=== PATIENT | female | born 1955 | race Caucasian/White ===

== ENCOUNTER 2020-04-30 14:36 | Emergency (ER) | payer MEDICARE, OTHER ==
[~2020-04-30] VITALS: Ht 162.6 cm; Wt 88.5 kg
[~2020-04-30 14:36] MED LIST: CETI10 PO; CODACE30 PO; DOXY100 PO; ERGO50000 PO; HYDACE5 PO; IBUP400 PO; LEVSOD50 PO; MECL25 PO; METPRE4DP PO; METR500 PO; NAPR500 PO; NAPR550 PO; PENVK500 PO; PRED20 PO; TRAM50 PO; VALERIAN ROOT PO
== END 2020-04-30 15:55 | disposition home or self-care (01) ==
LOC: ER 14:36
DX: M25.462 Effusion, left knee (principal); Z91.012 Allergy to eggs; Z79.899 Other long term (current) drug therapy
CPT/HCPCS: 99282

== ENCOUNTER 2022-01-21 11:56 | Emergency (ER) | payer MEDICARE, OTHER ==
[~2022-01-21] VITALS: Ht 162.6 cm; Wt 77.1 kg
[2022-01-21 13:23] LABS: BASOPHILS ABSOLUTE AUTO 0.05 K/mm3 (0.00-0.23); BASOPHILS PERCENT AUTO 1 % (0-2); EOSINOPHILS ABSOLUTE AUTO 0.11 K/mm3 (0.00-0.68); EOSINOPHILS PERCENT AUTO 2 % (0-6); Hematocrit 42.8 % (33.0-51.0); Hemoglobin 14.4 g/dL (11.5-16.0); IMMATURE GRAN ABSOLUTE AUTO 0.01 K/mm3 (0.00-0.10); IMMATURE GRAN PERCENT AUTO 0 % (0-1); LYMPHOCYTES ABSOLUTE AUTO 2.23 K/mm3 (0.84-5.20); LYMPHOCYTES PERCENT AUTO 41 % (21-46); MONOCYTES ABSOLUTE AUTO 0.53 K/mm3 (0.16-1.47); MONOCYTES PERCENT AUTO 10 % (4-13); Mean Corpuscular HGB 30.1 pg (26.0-34.0); Mean Corpuscular HGB Conc 33.6 g/dL (31.5-36.5); Mean Corpuscular Volume 89 fL (80-100); Mean Platelet Volume 10.6 fL (9.1-12.4); NEUTROPHILS ABSOLUTE AUTO 2.57 K/mm3 (1.96-9.15); NEUTROPHILS PERCENT AUTO 47 % (41-73); Platelet Count 224 K/mm3 (150-400); RDW Coefficient Variation 12.2 % (11.7-14.2); RDW Standard Deviation 40.6 fL (35.1-46.3); Red Blood Cell Count 4.79 M/mm3 (3.80-5.20)
[2022-01-21 13:40] LABS: Alanine Aminotransfer (ALT/SGP 28 U/L (12-78); Albumin, Blood 4.4 g/dL (3.4-5.0); Albumin/Globulin Ratio 1.3 (0.8-1.8); Alk Phos 74 U/L (50-136); Anion Gap 7 mmol/L (6-16); Aspartate Aminotrans (AST/SGOT 20 U/L (12-37); Bilirubin, Total 0.5 mg/dL (0.1-1.0); Blood Urea Nitrogen 12 mg/dL (8-24); CO2, Blood 26 mmol/L (21-32); Calcium, Blood 9.5 mg/dL (8.5-10.1); Chloride, Blood 108 mmol/L (98-108); Creatinine, Blood 0.75 mg/dL (0.40-1.00); Ethanol (Alcohol), Blood, Med <3 mg/dL; Globulin, Blood 3.4 g/dL (2.2-4.0); Glomerular Filtration Rate >60 (60-); Glucose, Blood 96 mg/dL (70-99); Potassium, Blood 3.6 mmol/L (3.5-5.5); Salicylate 3.2 mg/dL (2.8-20.0); Sodium, Blood 141 mmol/L (136-145); Total Protein, Blood 7.8 g/dL (6.4-8.2)
[2022-01-21 13:44] LABS: Acetaminophen, Random <2.0 ug/mL (10.0-30.0)
== END 2022-01-21 15:59 | disposition left against medical advice (07) ==
LOC: ER 11:56
PROVIDERS: Student in an Organized Health Care Education/Training Program
DX: F43.10 Post-traumatic stress disorder, unspecified (principal); Z53.21 Procedure and treatment not carried out due to patient leaving prior to being seen by health care provider
CPT/HCPCS: 36415; 80053; 85025; 93005; 93010; 99283-25; G0480

== ENCOUNTER 2023-04-02 15:49 | Emergency (ER) | payer MEDICARE, OTHER ==
[~2023-04-02] VITALS: Ht 162.6 cm; Wt 80.7 kg
[2023-04-02 18:55] VITALS: BP 147/81
[2023-04-02] MEDS ORDERED: TRAM50 PO (18:58)
== END 2023-04-02 19:05 | disposition home or self-care (01) ==
LOC: ER 15:49
DX: G89.29 Other chronic pain (principal); M25.561 Pain in right knee; M25.562 Pain in left knee; Z79.899 Other long term (current) drug therapy; M19.90 Unspecified osteoarthritis, unspecified site
CPT/HCPCS: 99282; A9270

== ENCOUNTER 2023-04-27 13:01 | Emergency (ER) | payer MEDICARE, OTHER | END 2023-04-27 14:58 | disposition home or self-care (01) | LOC: ER 13:01 | DX: M17.0 Bilateral primary osteoarthritis of knee (principal); G89.29 Other chronic pain; Z79.899 Other long term (current) drug therapy ==

== ENCOUNTER 2024-01-14 13:29 | Emergency (ER) | payer MEDICARE, OTHER ==
[~2024-01-14] VITALS: Ht 162.6 cm; Wt 80.7 kg
[~2024-01-14 13:29] MED LIST changes: +LIDOCAINE1 EAC1 TOP; +Voltaren100 GM TOP
[2024-01-14 13:44] VITALS: BP 176/77
== END 2024-01-14 14:03 | disposition home or self-care (01) ==
LOC: ER 13:29
DX: M79.604 Pain in right leg (principal); M79.605 Pain in left leg; G89.29 Other chronic pain; Z79.890 Hormone replacement therapy
CPT/HCPCS: 99282

== ENCOUNTER 2024-04-14 09:46 | Emergency (ER) | payer MEDICARE, OTHER ==
[~2024-04-14] VITALS: Ht 162.6 cm; Wt 77.1 kg
[2024-04-14] MEDS ORDERED: OXYC5 PO (10:20)
[2024-04-14] MEDS ORDERED: MORPHINE SULFAT15 M1 PO (10:20)
[2024-04-14 10:28] LABS: Source, Urine Clean Catch
[2024-04-14 10:32] LABS: BASOPHILS ABSOLUTE AUTO 0.05 K/mm3 (0.00-0.23); BASOPHILS PERCENT AUTO 1 % (0-2); EOSINOPHILS PERCENT AUTO 2 % (0-6); Hematocrit 44.9 % (33.0-51.0); Hemoglobin 14.7 g/dL (11.5-16.0); IMMATURE GRAN ABSOLUTE AUTO 0.02 K/mm3 (0.00-0.10); IMMATURE GRAN PERCENT AUTO 0 % (0-1); LYMPHOCYTES ABSOLUTE AUTO 2.09 K/mm3 (0.84-5.20); LYMPHOCYTES PERCENT AUTO 34 % (21-46); MONOCYTES ABSOLUTE AUTO 0.56 K/mm3 (0.16-1.47); MONOCYTES PERCENT AUTO 9 % (4-13); Mean Corpuscular HGB 29.7 pg (26.0-34.0); Mean Corpuscular HGB Conc 32.7 g/dL (31.5-36.5); Mean Corpuscular Volume 91 fL (80-100); Mean Platelet Volume 10.5 fL (9.1-12.4); NEUTROPHILS ABSOLUTE AUTO 3.32 K/mm3 (1.96-9.15); NEUTROPHILS PERCENT AUTO 54 % (41-73); Platelet Count 255 K/mm3 (150-400); RDW Coefficient Variation 12.9 % (11.7-14.2); RDW Standard Deviation 42.5 fL (35.1-46.3); Red Blood Cell Count 4.95 M/mm3 (3.80-5.20); White Blood Cell Count 6.14 K/mm3 (4.00-11.30)
[2024-04-14 10:34] LABS: Appearance, Urine Clear (Clear); Bilirubin, Urine Neg (Neg); Blood, Urine 2+ (Neg); Color, Urine Yellow (P-Yellow); Glucose Qualitative, Urine Neg (Neg); Ketones, Urine Neg (Neg); Leukocyte Esterase, Urine 1+ (Neg); Nitrite, Urine Neg (Neg); Protein, Urine Neg (Neg); Specific Gravity, Urine 1.015 (1.003-1.022); Urobilinogen, Urine NORM (Normal)
[2024-04-14] MEDS ORDERED: Morphine Sulfate 4 MG/1 ML Injection IV ONE (10:40)
[2024-04-14] MEDS ORDERED: Ondansetron HCl 2 MG / ML 2ML Vial IV ONE (10:40)
[2024-04-14 10:57] LABS: Albumin, Blood 4.3 g/dL (3.4-5.0); Albumin/Globulin Ratio 1.2 (0.8-1.8); Bilirubin, Total 0.6 mg/dL (0.1-1.0); Calcium, Blood 9.1 mg/dL (8.5-10.1); Creatinine, Blood 0.71 mg/dL (0.40-1.00); Globulin, Blood 3.5 g/dL (2.2-4.0); Potassium, Blood 3.6 mmol/L (3.5-5.5); Total Protein, Blood 7.8 g/dL (6.4-8.2)
[2024-04-14 11:04] LABS: Red Blood Cells, Urine 0-2 /hpf (0-2); Squamous Epithelial Cells Rare /hpf (Few); White Blood Cells, Urine 0-2 /hpf (0-5)
[2024-04-14 11:05] LABS: Bacteria Few /hpf; Mucus Light (0-Heavy)
[2024-04-14 11:30] VITALS: BP 122/65
[2024-04-14] MEDS ORDERED: Mag Hydrox/AL Hydrox/Simeth 30 ML UDC PO ONE (11:40)
[2024-04-14] MEDS ORDERED: Lidocaine 2% Viscous Soln 15 ML UDC PO ONE (11:40)
[2024-04-14] MEDS ORDERED: Atropine/Scopalam/Hyoscam/PB 5 ML UDC PO ONE (11:40)
== END 2024-04-14 12:38 | disposition home or self-care (01) ==
LOC: ER 09:46
PROVIDERS: Emergency Medicine
DX: K29.00 Acute gastritis without bleeding (principal); Z79.899 Other long term (current) drug therapy; E03.9 Hypothyroidism, unspecified
CPT/HCPCS: 80053; 81001; 83690; 85025; 87086; 96374; 96375; 99284-25; A9270; J2270; J2405

== ENCOUNTER 2025-07-07 12:58 | Emergency (ER) | payer MEDICARE, OTHER ==
[~2025-07-07] VITALS: Ht 162.6 cm; Wt 77.1 kg
[~2025-07-07 12:58] MED LIST changes: +MORPHINE SULFAT15 M1 PO; +OXYC5 PO
[2025-07-07] MEDS ORDERED: Ketorolac Tromethamine 30mg Vial IM ONE (15:25)
[2025-07-07] MEDS ORDERED: Lidocaine 4% 1 Patch TOP ONE (15:25)
[2025-07-07] MEDS ORDERED: OxyCODONE 5 mg/Acetamin 325 mg TABLET PO ONE (15:25)
[2025-07-07] MEDS ORDERED: LIDO700A20 TOP (15:33)
[2025-07-07] MEDS ORDERED: Percocet 5-3251 EACH PO (15:33)
[2025-07-07] MEDS ORDERED: Voltaren100 GM TOP (15:33)
[2025-07-07 15:54] VITALS: BP 130/72
== END 2025-07-07 15:56 | disposition home or self-care (01) ==
LOC: ER 12:58
DX: M25.551 Pain in right hip (principal); E03.9 Hypothyroidism, unspecified; Z79.899 Other long term (current) drug therapy
CPT/HCPCS: 96372; 99282-25; A9270; J1885

== ENCOUNTER 2025-08-01 11:54 | Emergency (ER) | payer MEDICARE, OTHER | END 2025-08-01 20:25 | disposition home or self-care (01) | LOC: ER 11:54 | DX: R42 Dizziness and giddiness (principal); N39.0 Urinary tract infection, site not specified; A49.9 Bacterial infection, unspecified; Z79.2 Long term (current) use of antibiotics; E03.9 Hypothyroidism, unspecified ==